=== PATIENT | female | born 1990 | race Two or more races ===

== ENCOUNTER 2021-06-18 11:54 | Emergency (ER) | payer OTHER ==
[~2021-06-18] VITALS: Ht 167.6 cm; Wt 91.2 kg
[2021-06-18] MEDS ORDERED: PRENA1 CHEW TA1.4 MG PO (12:48)
== END 2021-06-18 15:26 | disposition home or self-care (01) ==
LOC: ER 11:54
DX: O26.893 Other specified pregnancy related conditions, third trimester (principal); Z3A.36 36 weeks gestation of pregnancy; R21 Rash and other nonspecific skin eruption